=== PATIENT | female | born 1950 | race Caucasian/White ===

== ENCOUNTER 2019-11-30 18:31 | Emergency (ER) | payer MEDICARE, OTHER ==
[~2019-11-30] VITALS: Ht 170.2 cm; Wt 63.5 kg
--- NOTE | 2019-11-30 18:48 | NUR ---
Dr Lynn at the bedside for MSE.
[2019-11-30] MEDS ORDERED: BP MED (18:54)
[2019-11-30 19:10] LABS: BASOPHILS % (AUTO) 0.6 % (0.0-2.0); EOSINOPHILS # (AUTO) 0.1 K/uL (0.0-0.7); HEMATOCRIT 40.6 % (31.2-41.9); HEMOGLOBIN 13.8 g/dL (10.9-14.3); LYMPHOCYTES # (AUTO) 1.4 K/uL (20.0-40.0); LYMPHOCYTES % (AUTO) 22.4 % (20.5-51.5); MEAN CORPUSCULAR HEMOGLOBIN 30.3 uug (24.7-32.8); MEAN CORPUSCULAR HGB CONC 34 g/dL (32.3-35.6); MEAN CORPUSCULAR VOLUME 89.4 fL (75.5-95.3); MONOCYTES # (AUTO) 0.5 K/uL (2.0-10.0); NEUTROPHILS # (AUTO) 4.4 K/uL (1.8-8.9); PLATELET COUNT (AUTO) 348 K/uL (179-408); RED BLOOD CELL COUNT(AUTO) 4.54 MIL/uL (3.63-4.92); WHITE BLOOD COUNT (AUTO) 6.5 K/uL (3.8-11.8)
[2019-11-30] MEDS ORDERED: HYDROCHLOROTHIAZIDE 25 MG TABLET ONE (19:13)
[2019-11-30] MEDS ORDERED: CEphaleXIN 500 MG CAPSULE ONE (19:14)
[2019-11-30] MEDS: CEphaleXIN 500 MG CAPSULE PO ONE (19:16)
[2019-11-30] MEDS: HYDROCHLOROTHIAZIDE 25 MG TABLET PO ONE (19:16)
[2019-11-30 19:23] LABS: POTASSIUM 4.4 mmol/L (3.5-5.1)
[2019-11-30] MEDS: IV NS 1000 ML 1,000 ML IV ONE ×2 (19:43→21:07)
[2019-11-30 19:46] LABS: BILIRUBIN,DIRECT 0.1 mg/dL (0.0-0.2); BILIRUBIN,TOTAL 0.7 mg/dL (0.2-1.0); TOTAL PROTEIN, SERUM 7.6 g/dL (6.4-8.2)
[2019-11-30 19:52] LABS: *BILIRUBIN,URIN NEGATIVE (NEGATIVE); *CLARITY,URINE SLIGHTLY CLOUDY (CLEAR); *COLOR,URINE YELLOW (YELLOW); *KETONES,URINE 1+ (NEGATIVE); LEUKOCYTE ESTERASE ,URINE TRACE (NEGATIVE); NITRITE, URINE NEGATIVE (NEGATIVE); PH,URINE 5.5 (5.0-8.0)
[2019-11-30 19:55] LABS: *BLOOD, URINE TRACE INTACT (NEGATIVE)
[2019-11-30 19:56] LABS: UGLUCOSE 2+ (NEGATIVE)
[2019-11-30 20:33] LABS: BACTERIA,URINE FEW /HPF (NONE SEEN); SQUAMOUS EPITHELIAL CELL,UR FEW /HPF (NONE SEEN)
[2019-11-30] MEDS ORDERED: INSULIN REGULAR, HUMAN 10 UNIT in IV NORMAL SALINE 100 ML IV ONE ×2 (21:00)
[2019-11-30] MEDS ORDERED: INSULIN REGULAR, HUMAN 300 UNIT/3 ML VIAL ONE (21:24)
[2019-11-30] MEDS: INSULIN REGULAR, HUMAN 300 UNIT/3 ML VIAL IV ONE (21:28)
--- NOTE | 2019-11-30 22:43 | NUR ---
IV removed. Catheter intact and site benign. Pressure and 4x4 gauze applied to site. No bleeding noted.
[2019-11-30] MEDS ORDERED: LORAZEPAM 2 MG/1 ML VIAL ONE (22:55)
[2019-11-30] MEDS: LORAZEPAM 2 MG/1 ML VIAL IM ONE (23:00)
--- NOTE | 2019-11-30 23:58 | NUR ---
VS 182/119, P 79, SpO2 100% RA Per savanna RAMIREZ to discharge pt Addendum: 12/01/19 at 0250 by JERSON Patient discharged to home in stable condition. Written and verbal after care instructions given. Patient verbalizes understanding of instructions. Stressed follow up or return to ER for worsening s/s. aa/ox4. able to speak in complete sentences no s/s of distress in stable condition ambulatory with steady gait pt's daughter will drive pt home all belongings with pt
[2019-12-01 00:01] VITALS: BP 182/119
[2019-12-01 00:01] LABS: ABG BASE EXCESS 1.1 mmol/L; ABG HCO3 23.6 mmol/L; ABG PCO2 31.1 mmHg (35.0-45.0); ABG PH 7.498 (7.350-7.450); ABG PO2 96.2 mmHg (75.0-100.0); ABG SITE LEFT RADIAL; COHb 1.3 % (0.5-1.5); MetHb 0.3 % (0.0-1.5); VENT MODE ROOM AIR
[2019-12-02] MEDS ORDERED: HYDR25TA4 PO (15:40)
[2019-12-02] MEDS ORDERED: METF-440 PO (15:40)
[2019-12-02] MEDS ORDERED: CEPH-569 PO (15:40)
== END 2019-12-01 00:02 | disposition home or self-care (01) ==
LOC: ER 18:31
DX: L03.116 Cellulitis of left lower limb (principal); I10 Essential (primary) hypertension; E11.65 Type 2 diabetes mellitus with hyperglycemia
CPT/HCPCS: 36415; 36600; 80048; 80076; 81001; 82962 ×2; 85025; 96361; 96372; 96374; 99284; J1815; J2060; A4663; J7030